=== PATIENT | male | born 1980 | race African-American/Black ===

== ENCOUNTER 2017-02-10 19:55 | Emergency (ER) | payer OTHER | END 2017-02-10 20:22 | disposition home or self-care (01) | LOC: ER 19:55 | DX: S09.90XA Unspecified injury of head, initial encounter (principal); S16.1XXA Strain of muscle, fascia and tendon at neck level, initial encounter; V29.40XA Motorcycle driver injured in collision with unspecified motor vehicles in traffic accident, initial encounter | CPT/HCPCS: 70450; 72125; 73110-LT; 96372; 99284; J1170; J2800 ==